=== PATIENT | male | born 1945 | race Caucasian/White ===

== ENCOUNTER → 2016-08-04 | Day surgery (SDC) | payer OTHER ==
[~2016-08-04] VITALS: Ht 182.8 cm; Wt 131.5 kg
[~2016-08-04] MED LIST: ALAVERT10 M1 PO; GLIMEPIRIDE2 MG PO; LANTUS100 U/ML SC; METFORMIN500 MG PO; SPIRIVA -- 3018 MCG INH; SYMBICORT1 AE1 IH; VENTOLIN H0.09 MG/AC IH; ZESTRIL40 MG PO
--- NOTE | ~2016-08-04 | OP ---
[place], [place] OUTPATIENT NOTE NAME: ZAMZAM SHER SR UNIT #: [id number] ROOM: DOCTOR: LOUIS VARGAS MD BIRTHDATE: [birth year] DATE: 08/04/16 GASTROENDOSCOPIC REPORT HISTORY OF PRESENT ILLNESS: The patient has presented with history of colonic polyps, undergoing investigation. PAST MEDICAL HISTORY: Hypertension, diabetes mellitus, hypercholesterolemia. PAST SURGICAL HISTORY: Knee, cholecystectomy, inguinal hernia. FAMILY HISTORY: Brother with colonic carcinoma. ALLERGIES: ALEVE. SOCIAL HISTORY: Smoker, nonalcohol consumer. PROCEDURE: Todays' procedure part of investigation is colonoscopy plus polypectomy. PREMEDICATION: Versed and Diprivan. SCOPE: Olympus forward viewing colonoscope 10L video. REPORT: After putting the patient in left lateral position and after application of lubricant to the scope, the scope was introduced. Thereafter, under direct visualization, advanced through the length of colon without difficulty. Colon mucosa and vascularity carefully examined. Base of the cecum explored, appendiceal orifice identified, ileocecal valve was defined. Sessile polypoid lesion with snare was polypectomized. Sample recovered. The patient extubated, tolerated the procedure well. IMPRESSION: A sessile polyp, cecum, status post snare polypectomy. PLAN AND DISCUSSION: High fiber fruit diet. ACTIVITY: Ad jayden. FOLLOWUP: Routinely with you in office, p.r.n. visit with us in [facility]. Thank you very much indeed. Sincerely yours, [place], [place] OUTPATIENT NOTE NAME: ZAMZAM SHER SR UNIT #: [id number] ROOM: DOCTOR: LOUIS VARGAS MD BIRTHDATE: [birth year] LOUIS VARGAS MD CM:OUTNOTE:OUTPATIENT NOTE 1 1 LOUIS VARGAS MD 08/05/16 1745 [place].R
[2016-08-04 07:55] VITALS: BP 120/61
[2016-08-04 09:18] VITALS: BP 104/68
[2016-08-04 09:33] VITALS: BP 119/47
[2016-08-04 09:48] VITALS: BP 126/65
== END | disposition home or self-care (01) ==
LOC: SDC 07-29 09:30
DX: K63.5 Polyp of colon (principal); Z80.0 Family history of malignant neoplasm of digestive organs; Z98.890 Other specified postprocedural states; I10 Essential (primary) hypertension; E78.00 Pure hypercholesterolemia, unspecified; E11.9 Type 2 diabetes mellitus without complications; F17.210 Nicotine dependence, cigarettes, uncomplicated; J44.9 Chronic obstructive pulmonary disease, unspecified; Z87.01 Personal history of pneumonia (recurrent); Z96.652 Presence of left artificial knee joint; Z82.49 Family history of ischemic heart disease and other diseases of the circulatory system

== ENCOUNTER → 2020-12-31 | Outpatient (CLI) | payer OTHER ==
[2020-12-31 13:44] LABS: CHOLESTEROL 132 mg/dL (<200); LDL CHOLESTEROL 50 mg/dL (9-159); TRIGLYCERIDES 123 mg/dl (<150)
== END | disposition home or self-care (01) ==
LOC: LAB 12:44
PROVIDERS: ATTEND Internal Medicine
DX: I51.7 Cardiomegaly (principal); E78.2 Mixed hyperlipidemia; E11.9 Type 2 diabetes mellitus without complications